=== PATIENT | male | born 1960 | race American Indian/Alaskan Native ===

== ENCOUNTER 2017-09-19 21:31 | Emergency (ER) | payer OTHER ==
[2017-09-19 21:39] VITALS: BP 115/53; PULSE 56; RESP 18; O2SAT 100
[2017-09-19] MEDS ORDERED: Sodium Chloride 0.9% 1,000 ML IV STA (21:54)
--- NOTE | 2017-09-19 22:00 | ED PDOC ---
HPI: Abdomen Time Seen by Provider: 09/19/17 21:37 Chief Complaint (Nursing): Abdominal Pain Chief Complaint (Provider): Abdominal Pain History Per: Patient History/Exam Limitations: no limitations Onset/Duration Of Symptoms: Hrs (x 2) Current Symptoms Are (Timing): Still Present Additional Complaint(s): Nito is a 56 year old male with a past medical history of asthma, who was brought by EMS to the emergency department after experiencing epigastric abdominal pain associated with nausea and vomiting after eating candy bar. States had no diarrhea or fever during onset. Denies chest pain. PMD: Provider TBD Past Medical History Reviewed: Historical Data, Nursing Documentation, Vital Signs Vital Signs: Last Vital Signs Temp Pulse 56 L 09/19/17 21:35 Resp 18 09/19/17 21:35 BP 115/53 L 09/19/17 21:35 Pulse Ox 100 09/19/17 22:17 - Medical History PMH: Asthma - Surgical History Surgical History: No Surg Hx - Family History Family History: States: Unknown Family Hx - Home Medications Home Medications: Ambulatory Orders Medication Instructions Recorded Famotidine [Pepcid] 20 mg PO Q12 #20 tab 09/19/17 - Allergies Allergies/Adverse Reactions: Allergies Allergy/AdvReac Type Severity Reaction Status Date / Time No Known Allergies Allergy Verified 09/19/17 21:39 Review of Systems ROS Statement: Except As Marked, All Systems Reviewed And Found Negative Physical Exam - Physical Exam Cardiovascular/Chest: Positive for: Other (bradycardia noted) Respiratory: Positive for: Normal Breath Sounds. Negative for: Respiratory Distress Gastrointestinal/Abdominal: Positive for: Tenderness (Mild epigastric) Extremity: Positive for: Normal ROM (Full) - Laboratory Results Result Diagrams: 09/19/17 22:23 09/19/17 22:23 - ECG O2 Sat by Pulse Oximetry: 100 (RA) Pulse Ox Interpretation: Normal Medical Decision Making Medical Decision Making: Time: 21:54 Plan: - EKG - CMP - Drug Screen, Urine - Troponin I - CBC - Sodium Chloride 0.9% 1,000 ml IV 100 mls/hr - Pepcid 20 mg IVP Advised 24 hr obs for EKG changes and presence of cocaine . Pt feels better and wishes to go home aware of riskd ibncludinfg [place] Arrhythmia and . Scribe Attestation: Documented by Jim Lucia, acting as a scribe for Karel Garcia MD Provider Scribe Attestation: All medical record entries made by the Scribe were at my direction and personally dictated by me. I have reviewed the chart and agree that the record accurately reflects my personal performance of the history, physical exam, medical decision making, and the department course for this patient. I have also personally directed, reviewed, and agree with the discharge instructions and disposition. Disposition - Clinical Impression Clinical Impression: Abdominal pain - Patient ED Disposition Is Patient to be Admitted: No Counseled Patient/Family Regarding: Studies Performed, Diagnosis, Need For Followup, Rx Given - Disposition Referrals: [facility] [Outside] Disposition: Routine/Home Disposition Time: 23:20 Condition: FAIR Prescriptions: Famotidine [Pepcid] 20 mg PO Q12 #20 tab Instructions: Abdominal Pain (ED) Forms: [employer] (Maltese)
[2017-09-19 22:43] LABS: ALKALINE PHOSPHATASE 92 U/L (38-126); ALT/SGPT 30 U/L (21-72); AST/SGOT 31 U/L (17-59); BILIRUBIN,TOTAL 1.4 mg/dl (0.2-1.3); BLOOD UREA NITROGEN 20 mg/dl (9-20); CALCIUM 9.7 mg/dL (8.4-10.2); CARBON DIOXIDE 25 mmol/L (22-30); CHLORIDE 108 mmol/L (98-107); GFR AFRICAN-AMERICAN > 60; GLUCOSE,RANDOM 128 mg/dL (75-110); POTASSIUM 4.7 MMOL/L (3.6-5.0); SODIUM 145 mmol/l (132-148); TOTAL PROTEIN 8.5 G/DL (6.3-8.2)
[2017-09-19 22:54] LABS: BASO # 0.1 K/uL (0.0-0.2); BASO % 1.1 % (0.0-2.0); EOS # 0.3 K/uL (0.0-0.7); EOS % 2.6 % (0.0-4.0); HEMATOCRIT 41.4 % (35.0-51.0); LYMPH # 1.7 K/uL (1.0-4.3); LYMPH % 17.8 % (20.0-40.0); MEAN CORPUSCULAR HEMOGLOBIN 24.9 pg (27.0-31.0); MEAN CORPUSCULAR HGB CONC 32.7 g/dL (33.0-37.0); MEAN PLATELET VOLUME 8.9 fl (7.2-11.7); MONO % 9.9 % (0.0-10.0); NEUT # 6.7 K/uL (1.8-7.0); NEUT % 68.6 % (50.0-75.0); PLATELET COUNT 222 K/uL (130-400); RED CELL DISTRIBUTION WIDTH 17.7 % (11.5-14.5); WHITE BLOOD COUNT 9.8 K/uL (4.8-10.8)
[2017-09-19 23:00] LABS: ALB/GLOB RATIO 1.2 (1.0-2.1)
[2017-09-19 23:29] LABS: BASOPHIL 3 % (0-2); EOSINOPHIL 4 % (0-7); NEUTROPHIL 57 % (42-75); TOTAL CELLS COUNTED 100
[2017-09-19 23:30] LABS: GIANT PLATELETS PRESENT; LARGE PLATELETS PRESENT
--- NOTE | 2017-09-20 08:35 | CARD ---
APPROVED REPORT EKG Measurement Heart [id number] <Conclusion> Sinus bradycardia Voltage criteria for left ventricular hypertrophy Early repolarization Abnormal ECG
== END 2017-09-19 23:28 | disposition home or self-care (01) ==
LOC: H.ER 21:31
DX: R10.13 Epigastric pain (principal); R00.1 Bradycardia, unspecified; J45.909 Unspecified asthma, uncomplicated
CPT/HCPCS: 80053; 80324; 80345; 80346; 80349; 80353; 80358; 80361; 83992; 84484; 85025; 93005; 96361; 96374; 99282; J7040